=== PATIENT | female | born 1985 | race Native Hawaiian/Other Pacific Islander ===

== ENCOUNTER 2017-07-12 09:07 | Outpatient (CLI) | payer MEDICAID ==
--- NOTE | 2017-07-12 09:40 | XRay Report ---
LUMBAR SPINE RADIOGRAPHS INDICATION: Dorsalgia. COMPARISON: None similar. FINDINGS: AP, lateral and oblique lumbar spine radiographs demonstrate normal vertebral body stature, alignment and lumbar disc heights. No evidence of a pars defect. Lower thoracic disc narrowing and mild degenerative spurring incidentally noted. Right upper quadrant probable cholecystectomy clips. Nonobstructive bowel gas pattern. Intact SI joints. CONCLUSION: No acute lumbar radiographic abnormality with lower thoracic spine degenerative changes suspected, as above. Please correlate. Thank you for the opportunity to participate in this patient's care.
== END 2017-07-12 09:08 | disposition home or self-care (01) ==
LOC: XRAY 09:07
PROVIDERS: ATTEND Nurse Practitioner Family
DX: M53.84 Other specified dorsopathies, thoracic region (principal); Z90.49 Acquired absence of other specified parts of digestive tract
CPT/HCPCS: 72110

== ENCOUNTER 2018-01-05 03:30 | Emergency (ER) | payer MEDICAID ==
[2018-01-05 04:14] LABS: Basophils # (Auto) 0.1 K/mm3 (0.0-0.1); Basophils % (Auto) 0.5 % (0.0-1.8); Eosinophils # (Auto) 0.1 K/mm3 (0.0-0.4); Eosinophils % (Auto) 0.7 % (0.0-4.3); Hematocrit 39.2 % (30.3-42.9); Hemoglobin 12.9 gm/dl (10.1-14.3); Lymphocytes # (Auto) 1.5 K/mm3 (1.2-5.4); Lymphocytes % (Auto) 13.1 % (13.4-35.0); Mean Corpuscular HGB Conc 33 % (30-34); Mean Corpuscular Hemoglobin 27 pg (28-32); Mean Corpuscular Volume 83 fl (79-97); Monocytes # (Auto) 0.7 K/mm3 (0.0-0.8); Monocytes % (Auto) 6.4 % (0.0-7.3); Platelet Count 345 K/mm3 (140-440); Red Blood Count 4.71 M/mm3 (3.65-5.03); Red Cell Distribution Width 14.3 % (13.2-15.2)
[2018-01-05 05:01] LABS: Alanine Aminotransferase 13 units/L (7-56); Albumin 4.2 g/dL (3.9-5); BUN/Creatinine Ratio 28; Blood Urea Nitrogen 14 mg/dL (7-17); Calcium 9.2 mg/dL (8.4-10.2); Hemolysis Index 0; Lipase 12 units/L (13-60)
[2018-01-05 05:05] LABS: Bilirubin,Urine NEG (Negative); Blood,Urine MOD (Negative); Color,Urine Yellow (Yellow); Mucus,Urine 1+ /HPF
[2018-01-05] MEDS ORDERED: ALUM-MAG HYDROX-SIMETH 200-200-20MG/5ML PO ONE (05:21)
[2018-01-05] MEDS ORDERED: LIDOCAINE VISCOUS 2% PO ONE (05:22)
--- NOTE | 2018-01-05 07:25 | Emergency Department Report ---
ED Abdominal Pain HPI - General Chief Complaint: Abdominal Pain Stated Complaint: UPPER ABD PAIN Time Seen by Provider: 01/05/18 07:10 Source: patient, EMS Mode of arrival: Stretcher Limitations: No Limitations - History of Present Illness Initial Comments: 32-year-old female who states she's had several similar episodes in the past. Apparently she had her cholecystectomy as a teenager. She has had recurrent epigastric pain which is associated with katiana anxiety and being "jittery". She denies any back pain. At the time of my exam she has minimal nausea and has not recently vomited. She denies fever or chills. She states that she has been diagnosed with "anxiety" as the cause for this epigastric pain in the past. In addition the patient states that yesterday she rode a mechanical bull injuring her left ankle. Her ankle is uncomfortable and swollen. She denies any other injury. MD Complaint: abdominal pain -: Gradual, hour(s) Location: epigastric Radiation: none Migration to: no migration Severity: moderate Quality: aching Consistency: intermittent Improves With: nothing Worsens With: nothing Associated Symptoms: denies other symptoms, nausea, vomiting - Related Data Previous Rx's Medication Instructions Recorded Last Taken Type Acetaminophen with Codeine 10 ml PO Q6HR PRN #120 elixir 12/03/14 Unknown Rx [Acetaminophen-Codeine ORAL LIQ] Amoxicillin [Amoxicillin TAB] 875 mg PO BID #20 tablet 12/03/14 Unknown Rx Lansoprazole [Prevacid] 15 mg PO BID #30 cap 01/05/18 Unknown Rx Ondansetron [Zofran Odt] 4 mg PO Q4H PRN #14 tab.rapdis 01/05/18 Unknown Rx traMADol [Ultram] 50 mg PO Q6HR PRN #14 tablet 01/05/18 Unknown Rx Allergies Allergy/AdvReac Type Severity Reaction Status Date / Time No Known Allergies Allergy Verified 12/02/14 22:54 ED Review of Systems ROS: Stated complaint: UPPER ABD PAIN Other details as noted in HPI Constitutional: denies: chills, fever Eyes: denies: eye pain, eye discharge, vision change ENT: denies: ear pain, throat pain Respiratory: denies: cough, shortness of breath, wheezing Cardiovascular: denies: chest pain, palpitations Endocrine: no symptoms reported Gastrointestinal: abdominal pain, nausea, vomiting. denies: diarrhea Genitourinary: denies: urgency, dysuria, discharge Musculoskeletal: as per HPI. denies: back pain, joint swelling, arthralgia Skin: denies: rash, lesions Neurological: denies: headache, weakness, paresthesias Psychiatric: anxiety. denies: depression Hematological/Lymphatic: denies: easy bleeding, easy bruising ED Past Medical Hx - Past Medical History Previous Medical History?: Yes Hx Hypertension: No Hx Diabetes: No Hx Deep Vein Thrombosis: No Hx Renal Disease: No Hx Sickle Cell Disease: No Hx Seizures: No Hx Asthma: No Additional medical history: Anemia - Surgical History Past Surgical History?: Yes Hx Cholecystectomy: Yes Hx Appendectomy: Yes Additional Surgical History: R ovary removed. - Social History Smoking Status: Never Smoker Substance Use Type: None - Medications Home Medications: Home Medications Medication Instructions Recorded Confirmed Last Taken Type Acetaminophen with Codeine 10 ml PO Q6HR PRN #120 elixir 12/03/14 Unknown Rx [Acetaminophen-Codeine ORAL LIQ] Amoxicillin [Amoxicillin TAB] 875 mg PO BID #20 tablet 12/03/14 Unknown Rx Lansoprazole [Prevacid] 15 mg PO BID #30 cap 01/05/18 Unknown Rx Ondansetron [Zofran Odt] 4 mg PO Q4H PRN #14 tab.rapdis 01/05/18 Unknown Rx traMADol [Ultram] 50 mg PO Q6HR PRN #14 tablet 01/05/18 Unknown Rx ED Physical Exam - General Limitations: No Limitations General appearance: alert, in no apparent distress - Head Head exam: Present: atraumatic, normocephalic - Eye Eye exam: Present: normal appearance, PERRL, EOMI. Absent: scleral icterus - ENT ENT exam: Present: mucous membranes moist - Neck Neck exam: Present: normal inspection - Respiratory Respiratory exam: Present: normal lung sounds bilaterally. Absent: respiratory distress - Cardiovascular Cardiovascular Exam: Present: regular rate, normal rhythm. Absent: systolic murmur, diastolic murmur, rubs, gallop - GI/Abdominal GI/Abdominal exam: Present: soft, normal bowel sounds. Absent: distended, tenderness, guarding, rebound, rigid - Extremities Exam Extremities exam: Present: normal inspection, other (left ankle edema. No gross deformity. Neurovascular exam is intact.) - Back Exam Back exam: Present: normal inspection. Absent: CVA tenderness (R), CVA tenderness (L) - Neurological Exam Neurological exam: Present: alert, oriented X3, CN II-XII intact. Absent: motor sensory deficit - Psychiatric Psychiatric exam: Present: normal affect, normal mood - Skin Skin exam: Present: warm, dry, intact, normal color. Absent: rash ED Course Vital Signs 01/05/18 01/05/18 01/05/18 03:40 03:46 03:49 Temperature 97.8 F Pulse Rate 75 Respiratory 18 Rate Blood Pressure 120/62 Blood Pressure [Left] O2 Sat by Pulse 97 96 97 Oximetry 01/05/18 01/05/18 01/05/18 03:57 04:00 04:30 Temperature 97.8 F Pulse Rate 75 Respiratory 18 Rate Blood Pressure 128/62 128/62 Blood Pressure 120/62 [Left] O2 Sat by Pulse 97 100 97 Oximetry 01/05/18 01/05/18 01/05/18 05:00 05:30 06:00 Temperature Pulse Rate Respiratory Rate Blood Pressure 141/63 128/62 126/59 Blood Pressure [Left] O2 Sat by Pulse 96 96 94 Oximetry 01/05/18 01/05/18 06:30 07:00 Temperature Pulse Rate Respiratory Rate Blood Pressure 141/63 Blood Pressure [Left] O2 Sat by Pulse 96 95 Oximetry - Reevaluation(s) Reevaluation #1: Patient states that she feels ready for discharge. I do not think we need to pursue any imaging testing at this time. Repeat abdominal exam is totally benign and the patient's symptoms have resolved. She states that she has had many similar such episodes. I think she is appropriate for further workup with a GI specialist. She has been referred. She has been also told to return to the emergency department for further evaluation should she have any recurrent pain. Her abdominal pain has resolved. She states that she can follow-up with her family physician. Her ankle will be wrapped and crutches given. He will receive referral to orthopedics for her ankle injury. 01/05/18 09:15 ED Medical Decision Making - Lab Data Result diagrams: 01/05/18 04:06 01/05/18 04:06 Laboratory Results - last 24 hr 01/05/18 01/05/18 01/05/18 04:06 04:06 04:06 WBC 11.8 H RBC 4.71 Hgb 12.9 Hct 39.2 MCV 83 MCH 27 L MCHC 33 RDW 14.3 Plt Count 345 Lymph % (Auto) 13.1 L [place] % (Auto) 6.4 Eos % (Auto) 0.7 Baso % (Auto) 0.5 Lymph # 1.5 [place] # 0.7 Eos # 0.1 Baso # 0.1 Seg Neutrophils % 79.3 H Seg Neutrophils # 9.3 H Sodium 140 Potassium 4.1 Chloride 100.7 Carbon Dioxide 25 Anion Gap 18 BUN 14 Creatinine 0.5 L Estimated GFR > 60 BUN/Creatinine Ratio 28 Glucose 139 H Calcium 9.2 Total Bilirubin 0.50 AST 22 ALT 13 Alkaline Phosphatase 120 Total Protein 7.4 Albumin 4.2 Albumin/Globulin Ratio 1.3 Lipase 12 L HCG, Qual Negative Urine Color Urine Turbidity Urine pH Ur Specific [place] Urine Protein Urine Glucose (UA) Urine Ketones Urine Blood Urine Nitrite Urine Bilirubin Urine Urobilinogen Ur Leukocyte Esterase Urine WBC (Auto) Urine RBC (Auto) U Epithel Cells (Auto) Urine Mucus 01/05/18 04:44 WBC RBC Hgb Hct MCV MCH MCHC RDW Plt Count Lymph % (Auto) [place] % (Auto) Eos % (Auto) Baso % (Auto) Lymph # [place] # Eos # Baso # Seg Neutrophils % Seg Neutrophils # Sodium Potassium Chloride Carbon Dioxide Anion Gap BUN Creatinine Estimated GFR BUN/Creatinine Ratio Glucose Calcium Total Bilirubin AST ALT Alkaline Phosphatase Total Protein Albumin Albumin/Globulin Ratio Lipase HCG, Qual Urine Color Yellow Urine Turbidity Clear Urine pH 5.0 Ur Specific [place] 1.030 Urine Protein 30 mg/dl Urine Glucose (UA) Neg Urine Ketones 20 Urine Blood Mod Urine Nitrite Neg Urine Bilirubin Neg Urine Urobilinogen 2.0 Ur Leukocyte Esterase Neg Urine WBC (Auto) 4.0 Urine RBC (Auto) 4.0 U Epithel Cells (Auto) 1.0 Urine Mucus 1+ Critical care attestation.: If time is entered above; I have spent that time in minutes in the direct care of this critically ill patient, excluding procedure time. ED Disposition Clinical Impression: Epigastric pain Left ankle sprain Qualifiers: Encounter type: initial encounter Involved ligament of ankle: unspecified ligament Qualified Code(s): S93.402A - Sprain of unspecified ligament of left ankle, initial encounter Disposition: TO HOME OR SELFCARE Is pt being admited?: No Does the pt Need Aspirin: No Condition: Stable Instructions: Abdominal Pain (ED), Ankle Sprain (ED) Additional Instructions: Nonweightbearing left ankle. Follow-up with orthopedic physician. Further evaluation of the GI specialist is recommended for your recurrent abdominal pain. However, if you have any recurrent abdominal pain please return to the emergency department for further evaluation. Rx as directed. Return as needed. Prescriptions: Lansoprazole [Prevacid] 15 mg PO BID #30 cap Ondansetron [Zofran Odt] 4 mg PO Q4H PRN #14 tab.rapdis PRN Reason: nausea traMADol [Ultram] 50 mg PO Q6HR PRN #14 tablet PRN Reason: Pain Referrals: ZEESHAN ZARAGOZA MD [Staff Physician] - 3-5 Days PRIMARY CAREMD [Primary Care Provider] - 24 Hours [facility] [Provider Group] - 2-3 Days Time of Disposition: 09:19
[2018-01-05] MEDS ORDERED: NORCO 5/325 PO ONE (07:43)
[2018-01-05] MEDS ORDERED: ZOFRAN ODT PO ONE (07:44)
--- NOTE | 2018-01-05 08:13 | XRay Report ---
FINAL REPORT EXAM: XR ANKLE 3+V LT HISTORY: fall pain TECHNIQUE: Three views of the left ankle PRIORS: None. FINDINGS: There is no evidence of acute fracture. There is no evidence of joint dislocation. There is soft tissue swelling. IMPRESSION: There is no acute osseous abnormality identified.
[2018-01-05 09:40] VITALS: BP 105/68
== END 2018-01-05 09:49 | disposition home or self-care (01) ==
LOC: ED 03:30
DX: S93.402A Sprain of unspecified ligament of left ankle, initial encounter (principal); R10.13 Epigastric pain; X58.XXXA Exposure to other specified factors, initial encounter; Y93.89 Activity, other specified; Y92.89 Other specified places as the place of occurrence of the external cause; Y99.8 Other external cause status
CPT/HCPCS: 36415; 80053; 81001; 83690; 84703; 85025; 99284; Q0162

== ENCOUNTER 2021-05-29 00:50 | Emergency (ER) | payer MEDICAID ==
[2021-05-29 01:11] VITALS: BP 156/86
[2021-05-29] MEDS ORDERED: SODIUM CHLORIDE 0.9% 1000 ML 1,000 ML IV ONE (01:20)
--- NOTE | 2021-05-29 01:21 | Emergency Department Report ---
Chief Complaint: Medical Clearance Stated Complaint: JITTERY/COTTON MOUTH - HPI History of Present Illness: 35-year-old female presents to the emergency department with a complaint of feeling jittery and having [place] after ingesting what she thought was a marijuana edible at about 10 PM this evening. Patient says that she does not use or smoke marijuana regularly. She denies any past medical history. She has not taken anything for symptoms prior to presentation. Patient's friend is currently being seen here for similar symptoms. - Exam Vital Signs: Vital Signs 05/29/21 01:04 Temperature 98 F Pulse Rate 108 H Respiratory 18 Rate Blood Pressure 156/86 [Right] O2 Sat by Pulse 96 Oximetry MSE screening note: Focused history and physical exam performed. Due to findings the following was ordered: I have ordered for the patient have a CBC, metabolic panel, blood alcohol level and UDS. The patient will receive a liter of IV fluid resuscitation. ED Disposition for MSE Condition: Stable
[2021-05-29 02:00] LABS: Blood Urea Nitrogen 12 mg/dL (7-17); Calcium 9.5 mg/dL (8.4-10.2); Hemolysis Index 1
[2021-05-29 02:03] LABS: BUN/Creatinine Ratio 24
[2021-05-29 02:13] LABS: Basophils % (Auto) 0.4 % (0.0-1.8); Eosinophils # (Auto) 0.1 K/mm3 (0.0-0.4); Hematocrit 36.4 % (30.3-42.9); Hemoglobin 12.2 gm/dl (10.1-14.3); Lymphocytes # (Auto) 1.7 K/mm3 (1.2-5.4); Lymphocytes % (Auto) 20.5 % (13.4-35.0); Mean Corpuscular HGB Conc 34 % (30-34); Mean Corpuscular Volume 84 fl (79-97); Monocytes # (Auto) 0.6 K/mm3 (0.0-0.8); Monocytes % (Auto) 7.4 % (0.0-7.3); Platelet Count 277 K/mm3 (140-440); Red Blood Count 4.33 M/mm3 (3.65-5.03); Red Cell Distribution Width 13.4 % (13.2-15.2)
[2021-05-29 02:32] LABS: Amphetamine Screen,Urine PRESUMPTIVE NEGATIVE; Benzodiazepines Screen,Urine PRESUMPTIVE NEGATIVE; Cannabinoid Screen,Urine PRESUMPTIVE POSITIVE; Cocaine Screen,Urine PRESUMPTIVE NEGATIVE; Methadone Screen,Urine PRESUMPTIVE NEGATIVE; Opiate Screen,Urine PRESUMPTIVE NEGATIVE
--- NOTE | 2021-05-29 02:56 | Emergency Department Report ---
ED General Adult HPI - General Chief complaint: Medical Clearance Stated complaint: JITTERY/COTTON MOUTH Time Seen by Provider: 05/29/21 01:22 Source: patient Mode of arrival: Ambulatory Limitations: No Limitations - History of Present Illness Initial comments: Patient presents with a friend secondary to anxiety and palpitations. She states she felt very jittery. They shared an edible. They have no idea how much THC or marijuana was in the edible. This was not something that was made by them or purchased by them. They do not know if this was laced with anything. They both become very shaky and tremulous. They both had palpitations. Patient states that her friend was worse. Regardless, they came here for evaluation treatment because of the symptoms. She states that they did not intentionally do any other drug. Severity scale (0 -10): 0 - Related Data Previous Rx's Medication Instructions Recorded Last Taken Type Acetaminophen with Codeine 10 ml PO Q6HR PRN #120 elixir 12/03/14 Unknown Rx [Acetaminophen-Codeine ORAL LIQ] Amoxicillin [Amoxicillin TAB] 875 mg PO BID #20 tablet 12/03/14 Unknown Rx Lansoprazole [Prevacid] 15 mg PO BID #30 cap 01/05/18 Unknown Rx Ondansetron [Zofran Odt] 4 mg PO Q4H PRN #14 tab.rapdis 01/05/18 Unknown Rx traMADoL [Ultram] 50 mg PO Q6HR PRN #14 tablet 01/05/18 Unknown Rx Allergies Allergy/AdvReac Type Severity Reaction Status Date / Time No Known Allergies Allergy Verified 12/02/14 22:54 ED Review of Systems ROS: Stated complaint: JITTERY/COTTON MOUTH Other details as noted in HPI Comment: All other systems reviewed and negative Constitutional: denies: fever Eyes: denies: eye pain ENT: denies: ear pain Respiratory: denies: see HPI Cardiovascular: as per HPI Endocrine: denies: unexplained weight loss Gastrointestinal: denies: abdominal pain Genitourinary: denies: dysuria Musculoskeletal: denies: back pain Skin: denies: rash Neurological: denies: headache Hematological/Lymphatic: denies: easy bruising ED Past Medical Hx - Past Medical History Previous Medical History?: No Hx Hypertension: No Hx Diabetes: No Hx Deep Vein Thrombosis: No Hx Renal Disease: No Hx Sickle Cell Disease: No Hx Seizures: No Hx Asthma: No Additional medical history: Anemia - Surgical History Past Surgical History?: Yes Hx Cholecystectomy: Yes Hx Appendectomy: Yes Additional Surgical History: R ovary removed. Gastric sleeve - Family History Family history: no significant - Social History Smoking Status: Never Smoker - Medications Home Medications: Home Medications Medication Instructions Recorded Confirmed Last Taken Type Acetaminophen with Codeine 10 ml PO Q6HR PRN #120 elixir 12/03/14 Unknown Rx [Acetaminophen-Codeine ORAL LIQ] Amoxicillin [Amoxicillin TAB] 875 mg PO BID #20 tablet 12/03/14 Unknown Rx Lansoprazole [Prevacid] 15 mg PO BID #30 cap 01/05/18 Unknown Rx Ondansetron [Zofran Odt] 4 mg PO Q4H PRN #14 tab.rapdis 01/05/18 Unknown Rx traMADoL [Ultram] 50 mg PO Q6HR PRN #14 tablet 01/05/18 Unknown Rx ED Physical Exam - General Limitations: No Limitations, Other (Pulse ox noted and normal) General appearance: alert, in no apparent distress - Head Head exam: Present: atraumatic, normocephalic, normal inspection - Eye Eye exam: Present: normal appearance, EOMI. Absent: scleral icterus - ENT ENT exam: Present: normal exam, normal orophraynx - Neck Neck exam: Present: normal inspection, meningismus - Respiratory Respiratory exam: Present: normal lung sounds bilaterally. Absent: respiratory distress - Cardiovascular Cardiovascular Exam: Present: regular rate, normal rhythm - GI/Abdominal GI/Abdominal exam: Present: soft. Absent: tenderness - Extremities Exam Extremities exam: Present: normal capillary refill - Back Exam Back exam: Absent: CVA tenderness (R), CVA tenderness (L) - Neurological Exam Neurological exam: Present: alert, oriented X3, normal gait. Absent: motor sensory deficit - Psychiatric Psychiatric exam: Present: normal affect, normal mood - Skin Skin exam: Present: warm, dry ED Course Vital Signs 05/29/21 01:04 Temperature 98 F Pulse Rate 108 H Respiratory 18 Rate Blood Pressure 156/86 [Right] O2 Sat by Pulse 96 Oximetry - Reevaluation(s) Reevaluation #1: 05/29/21 02:55 Patient was seen as above. Labs have been noted. She was subsequently discha rged. Old records reviewed. ED Medical Decision Making - Lab Data Result diagrams: 05/29/21 01:27 05/29/21 01:27 - Medical Decision Making Patient presents secondary to marijuana toxicity. She does not appear to be septic or toxic. She is not suicidal homicidal. There is no evidence of other intoxicants on board. She does not have significant psychomotor agitation to suggest cocaine or stimulant abuse. Patient was treated symptomatically and discharged. Critical Care Time: No Critical care attestation.: If time is entered above; I have spent that time in minutes in the direct care of this critically ill patient, excluding procedure time. ED Disposition Clinical Impression: Marijuana abuse Disposition: HOME / SELF CARE / HOMELESS Is pt being admited?: No Condition: Stable Instructions: Substance Use Disorder Additional Instructions: Drink plenty water. Stop using marijuana. Return for problems. Follow-up with your regular doctor for recheck and further management. If you do not have a doctor, follow-up with the referral physician. Referrals: BAILEE FAYE MD [Primary Care Provider] - 3-5 Days CECILE INFANTE MD [Staff Physician] - 3-5 Days
== END 2021-05-29 03:23 | disposition home or self-care (01) ==
LOC: ED 00:50
DX: F12.10 Cannabis abuse, uncomplicated (principal); F41.9 Anxiety disorder, unspecified; D64.9 Anemia, unspecified; Z90.49 Acquired absence of other specified parts of digestive tract; Z79.899 Other long term (current) drug therapy
CPT/HCPCS: 36415; 80048; 80307; 85025; 96360; 99283; J7030; 80320; G0480